=== PATIENT | female | born 1960 | race Caucasian/White ===

== ENCOUNTER 2022-12-22 20:49 | Emergency (ER) | payer BC ==
[~2022-12-22] VITALS: Ht 167.6 cm; Wt 72.6 kg
[2022-12-22 20:53] VITALS: BP_SYST 125
--- NOTE | 2022-12-22 20:53 | NUR ---
Patient triaged and placed in ER bed 4 for evaluation. Vital signs updated, denied any acute distress at this time. Report given to JILLIAN Mike for continuity of care. Instructed to notify ED staff for any changes in condition or worsening of symptoms. Patient verbalized understanding.
--- NOTE | 2022-12-22 21:05 | NUR ---
First contact. Pt on monitor. C/o back pain 06/06. Admittted to falling 2 days ago. Denies passing out.
--- NOTE | 2022-12-22 21:11 | NUR ---
Dr. Harris at bedside examining the patient.
[2022-12-22] MEDS ORDERED: KETOROLAC TROMETHAMINE 60 MG/2 ML VIAL IM ONE (21:15)
[2022-12-22] MEDS ORDERED: HYDROcodone/ACETAMIN 10-325 MG TAB PO ONE (21:15)
[2022-12-22 22:42] VITALS: BP_SYST 111
--- NOTE | 2022-12-22 22:42 | NUR ---
Patient given written and verbal discharge instructions and verbalizes understanding. ER MD discussed with patient the results and treatment provided. Patient in stable condition. ID arm band removed. Patient educated on pain management and to follow up with PMD. Opportunity for questions provided and answered.
== END 2022-12-22 22:42 | disposition home or self-care (01) ==
LOC: SED 20:49
DX: S33.5XXA Sprain of ligaments of lumbar spine, initial encounter (principal); S20.212A Contusion of left front wall of thorax, initial encounter; E11.9 Type 2 diabetes mellitus without complications; Z88.5 Allergy status to narcotic agent; Z88.6 Allergy status to analgesic agent; Z88.8 Allergy status to other drugs, medicaments and biological substances; Z79.899 Other long term (current) drug therapy; W18.30XA Fall on same level, unspecified, initial encounter; Y93.89 Activity, other specified; Y92.89 Other specified places as the place of occurrence of the external cause; Y99.8 Other external cause status
CPT/HCPCS: 99284; 71045; 72100; 96372; J1885

== ENCOUNTER 2022-12-24 16:25 | Emergency (ER) | payer BC ==
[~2022-12-24] VITALS: Ht 170.2 cm; Wt 69.4 kg
[2022-12-24 17:10] VITALS: BP_SYST 124
--- NOTE | 2022-12-24 17:17 | NUR ---
Patient triaged and placed in waiting room. VSS and patient appears in no acute distress at this time. Accompanied by SELF, awaiting available bed, and MD notified of need for MSE.
[2022-12-24] MEDS ORDERED: ONDANSETRON 4 MG ODT TAB PO ONE (18:00)
[2022-12-24] MEDS ORDERED: MORPHINE 4 MG INJ. 4 MG/ML VIAL IM ONE (18:00)
--- NOTE | 2022-12-24 20:00 | NUR ---
ER at bedside examining patient.
--- NOTE | 2022-12-24 20:39 | NUR ---
PT to radiology for CT.
[2022-12-24] MEDS ORDERED: ONDANSETRON 4 MG ODT TAB ONE (20:42)
[2022-12-24] MEDS ORDERED: MORPHINE 4 MG INJ. 4 MG/ML VIAL ONE (20:42)
--- NOTE | 2022-12-24 20:48 | NUR ---
Patient to ER bed goncalves to gown for evaluation. Side rails up. Report given to Cande MORRISON.
--- NOTE | 2022-12-24 20:55 | NUR ---
Pt brought in by self from home. Chief complaint generalized pain. 05/06. Pt is aaox 3, denies LOC, skin intact. Pt has osteoporosis.
--- NOTE | 2022-12-24 21:53 | NUR ---
Patient given written and verbal discharge instructions and verbalizes understanding. ER MD discussed with patient the results and treatment provided. Patient in stable condition. ID arm band removed. Patient educated on pain management and to follow up with PMD. Opportunity for questions provided and answered. Medication side effect fact sheet provided.
[2022-12-24 21:55] VITALS: BP_SYST 124
== END 2022-12-24 21:56 | disposition home or self-care (01) ==
LOC: SED 16:25
DX: S32.018A Other fracture of first lumbar vertebra, initial encounter for closed fracture (principal); E11.9 Type 2 diabetes mellitus without complications; Z88.5 Allergy status to narcotic agent; Z88.6 Allergy status to analgesic agent; Z88.8 Allergy status to other drugs, medicaments and biological substances; Z79.899 Other long term (current) drug therapy; W18.30XA Fall on same level, unspecified, initial encounter; Y93.89 Activity, other specified; Y92.89 Other specified places as the place of occurrence of the external cause; Y99.8 Other external cause status
CPT/HCPCS: 99285; 72131; 76376; 96372; Q0162; J2270

== ENCOUNTER 2023-06-11 16:01 | Emergency (ER) | payer BC ==
[~2023-06-11] VITALS: Ht 162.6 cm; Wt 74.8 kg
[2023-06-11 16:22] VITALS: BP_SYST 126; PULSE 72; RESP 18; TEMP 98; O2SAT 96
[2023-06-11] MEDS ORDERED: KETOROLAC TROMETHAMINE 30 MG VIAL IM ONE (16:30)
[2023-06-11] MEDS ORDERED: HYDROcodone/ACETAMIN 10-325 MG TAB PO ONE (18:45)
[2023-06-11] MEDS ORDERED: TRAM50TA2 PO (19:30)
[2023-06-11] MEDS ORDERED: DICL20GE TP (19:30)
[2023-06-11 19:45] VITALS: BP_SYST 113; PULSE 72; RESP 16; TEMP 98; O2SAT 100
== END 2023-06-11 19:43 | disposition home or self-care (01) ==
LOC: SED 16:01
DX: S40.012A Contusion of left shoulder, initial encounter (principal); E11.9 Type 2 diabetes mellitus without complications; Z88.5 Allergy status to narcotic agent; Z88.8 Allergy status to other drugs, medicaments and biological substances; Z79.899 Other long term (current) drug therapy; W01.0XXA Fall on same level from slipping, tripping and stumbling without subsequent striking against object, initial encounter; Y93.89 Activity, other specified; Y92.89 Other specified places as the place of occurrence of the external cause; Y99.8 Other external cause status
CPT/HCPCS: 99284; 71045; 73000; 73030; 96372; J1885

== ENCOUNTER 2023-06-18 17:21 | Emergency (ER) | payer BC ==
[~2023-06-18] VITALS: Ht 162.6 cm; Wt 71.2 kg
[~2023-06-18 17:21] MED LIST: DICL20GE TP; TRAM50TA2 PO
[2023-06-18 17:36] VITALS: BP_SYST 104; PULSE 75; RESP 17; TEMP 98.5; O2SAT 96
[2023-06-18 23:47] VITALS: BP_SYST 110; PULSE 68; RESP 16; TEMP 98.5; O2SAT 98
== END 2023-06-18 23:47 | disposition home or self-care (01) ==
LOC: SED 17:21
DX: S40.012A Contusion of left shoulder, initial encounter (principal); E11.9 Type 2 diabetes mellitus without complications; Z88.5 Allergy status to narcotic agent; Z88.8 Allergy status to other drugs, medicaments and biological substances; Z79.899 Other long term (current) drug therapy; W01.0XXA Fall on same level from slipping, tripping and stumbling without subsequent striking against object, initial encounter; Y93.89 Activity, other specified; Y92.89 Other specified places as the place of occurrence of the external cause; Y99.8 Other external cause status
CPT/HCPCS: 71045; 99283

== ENCOUNTER 2023-06-26 14:12 | Emergency (ER) | payer BC ==
[~2023-06-26] VITALS: Ht 162.6 cm; Wt 75.7 kg
[2023-06-26 14:15] VITALS: BP_SYST 118; PULSE 81; RESP 17; TEMP 98.7; O2SAT 96
[2023-06-26] MEDS ORDERED: KETOROLAC TROMETHAMINE 60 MG/2 ML VIAL IM ONE (16:00)
[2023-06-26 17:02] VITALS: BP_SYST 119; PULSE 74; RESP 18; TEMP 98; O2SAT 100
== END 2023-06-26 17:01 | disposition home or self-care (01) ==
LOC: SED 14:12
DX: S42.012A Anterior displaced fracture of sternal end of left clavicle, initial encounter for closed fracture (principal); E11.9 Type 2 diabetes mellitus without complications; Z88.5 Allergy status to narcotic agent; Z88.8 Allergy status to other drugs, medicaments and biological substances; Z79.899 Other long term (current) drug therapy; W18.39XA Other fall on same level, initial encounter; Y93.89 Activity, other specified; Y92.89 Other specified places as the place of occurrence of the external cause; Y99.8 Other external cause status
CPT/HCPCS: 99285; 73200; 76376; 96372; J1885

== ENCOUNTER 2023-08-15 16:57 | Emergency (ER) | payer BC ==
[~2023-08-15] VITALS: Ht 162.6 cm; Wt 72.6 kg
[2023-08-15] MEDS ORDERED: LEVO112C4 PO (17:16)
[2023-08-15] MEDS ORDERED: ATOR10TA68 PO (17:16)
[2023-08-15] MEDS ORDERED: ESTR10TA4 TP (17:17)
[2023-08-15] MEDS ORDERED: TOPI150C4 PO (17:17)
[2023-08-15] MEDS ORDERED: METH-799 PO (17:17)
[2023-08-15] MEDS ORDERED: CHOL500051 PO (17:17)
[2023-08-15] MEDS ORDERED: POTA-360 PO (17:17)
[2023-08-15] MEDS ORDERED: DIPH25TA62 PO (17:17)
[2023-08-15] MEDS ORDERED: GABA-531 PO (17:17)
[2023-08-15] MEDS ORDERED: [UNRECOGNIZED DRUG - CODE] SQ (17:17)
[2023-08-15] MEDS ORDERED: BIOT5000 PO (17:17)
[2023-08-15] MEDS ORDERED: PROM50TA3 PO (17:17)
[2023-08-15] MEDS ORDERED: ROMO210S SQ (17:17)
[2023-08-15] MEDS ORDERED: MONT-47 PO (17:17)
[2023-08-15] MEDS ORDERED: QUET200T5 PO (17:17)
[2023-08-15] MEDS ORDERED: [UNRECOGNIZED DRUG - CODE] PO (17:17)
[2023-08-15] MEDS ORDERED: MULT-1164 PO (17:17)
[2023-08-15] MEDS ORDERED: FLO110 INH (17:17)
[2023-08-15] MEDS ORDERED: MIRA50TA PO (17:17)
[2023-08-15 17:18] VITALS: BP_SYST 103; PULSE 79; RESP 16; TEMP 97.6; O2SAT 96
[2023-08-15 17:57] LABS: BASOPHILS # (AUTO) 0.1 K/uL (0.0-0.2); BASOPHILS % (AUTO) 0.8 % (0.0-2.0); EOSINOPHILS # (AUTO) 0.1 K/uL (0.0-0.4); EOSINOPHILS % (AUTO) 1.6 % (0.0-4.0); HEMOGLOBIN 11.7 g/dL (12.0-16.0); LYMPHOCYTES # (AUTO) 2.2 K/uL (1.0-5.5); LYMPHOCYTES % (AUTO) 28.2 % (20.5-51.5); MEAN CORPUSCULAR HEMOGLOBIN 30 pg (27-31); MEAN CORPUSCULAR HGB CONC 32 % (32-36); MEAN CORPUSCULAR VOLUME 95 fL (79.0-98.0); MONOCYTES # (AUTO) 0.5 K/uL (0.0-1.0); MONOCYTES % (AUTO) 5.8 % (1.7-9.3); NEUTROPHILS # (AUTO) 5.1 K/uL (1.8-7.7); NEUTROPHILS % (AUTO) 63.6 % (40.0-70.0); PLATELET COUNT (AUTO) 241 K/uL (130-430); RED BLOOD CELL COUNT(AUTO) 3.89 MIL/uL (4.2-6.2); RED CELL DISTRIBUTION WIDTH 13.5 % (9.0-15.0)
[2023-08-15 18:11] LABS: ALANINE AMINOTRANSFERASE 52 U/L (12-78); ALBUMIN 2.5 g/dL (3.4-4.8); ANION GAP 5 (5-15); ASPARTATE AMINOTRANSFERASE 31 U/L (10-37); CALCIUM 8.3 mg/dL (8.4-11.0); CARBON DIOXIDE 28 mmol/L (23-29); CHLORIDE 107 mmol/L (98-107); CREATININE 0.99 mg/dL (0.55-1.30); GFR AFRICAN AMERICAN 73 mL/min (>90); GLUCOSE 197 mg/dL (74-106); POTASSIUM 3.8 mmol/L (3.5-5.1); SODIUM SERUM 140 mmol/L (136-145); TOTAL BILIRUBIN 0.3 mg/dL (0.0-1.0); TOTAL PROTEIN, SERUM 5.7 g/dL (6.4-8.3); UREA NITROGEN, BLOOD 22 mg/dL (8-21)
[2023-08-15 18:14] LABS: GFR NON AFRICAN-AMERICAN 60 mL/min (>90)
== END 2023-08-15 18:58 | disposition home or self-care (01) ==
LOC: SED 16:57
DX: R60.0 Localized edema (principal); E11.9 Type 2 diabetes mellitus without complications; Z88.5 Allergy status to narcotic agent; Z88.8 Allergy status to other drugs, medicaments and biological substances; Z79.899 Other long term (current) drug therapy
CPT/HCPCS: 36415; 71045; 80053; 83880; 84484; 85025; 93005; 93970; 99285